=== PATIENT | male | born 1950 | race Caucasian/White ===

== ENCOUNTER 2018-01-24 12:26 | Day surgery (SDC) | payer MEDICARE, MEDICAID ==
[~2018-01-24] VITALS: Ht 182.9 cm; Wt 71.0 kg
[2018-01-24] MEDS ORDERED: fentaNYL/PF 50MCG/1 ML 2ML syringe ONE (12:40)
[2018-01-24] MEDS ORDERED: MIDAZolam 5mg/ml 2ml vial ONE (12:40)
[2018-01-24] MEDS ORDERED: ALTACE PO (12:53)
[2018-01-24] MEDS ORDERED: VENL150C2 PO (12:54)
[2018-01-24] MEDS ORDERED: HYDR25TA4 PO (12:54)
[2018-01-24] MEDS ORDERED: PANT-47 PO (12:55)
[2018-01-24] MEDS ORDERED: CLON-527 PO (12:57)
[2018-01-24] MEDS ORDERED: METH-603 PO (13:03)
[2018-01-24] MEDS ORDERED: FLUT1DIS4 INH (13:04)
[2018-01-24 13:05] VITALS: BP 123/73
[2018-01-24] MEDS ORDERED: TEST200V10 IM (13:06)
[2018-01-24] MEDS ORDERED: RAMIPRIL PO (13:08)
[2018-01-24] MEDS ORDERED: TOPROL PO (13:08)
[2018-01-24 14:07] VITALS: BP 114/70
[2018-01-24 14:17] VITALS: BP 111/72
[2018-01-24 14:27] VITALS: BP 100/62
[2018-01-24 14:37] VITALS: BP 110/66
== END 2018-01-24 14:45 | disposition home or self-care (01) ==
LOC: GI LAB 12:26
PROVIDERS: ATTEND Internal Medicine Gastroenterology
DX: K52.89 Other specified noninfective gastroenteritis and colitis (principal); K63.3 Ulcer of intestine; F41.8 Other specified anxiety disorders; I10 Essential (primary) hypertension; Z79.899 Other long term (current) drug therapy
CPT/HCPCS: 45380; 99153; G0500; J2250; J3010; J7030; A4620

== ENCOUNTER 2018-06-14 20:17 | Emergency (ER) | payer MEDICARE, MEDICAID ==
[~2018-06-14 20:17] MED LIST: ALTACE PO; CLON-527 PO; FLUT1DIS4 INH; HYDR25TA4 PO; METH-603 PO; PANT-47 PO; RAMIPRIL PO; TEST200V10 IM; TOPROL PO; VENL150C2 PO
== END 2018-06-14 21:20 | disposition left against medical advice (07) ==
LOC: ER 20:18
DX: R50.9 Fever, unspecified (principal); Z53.21 Procedure and treatment not carried out due to patient leaving prior to being seen by health care provider

== ENCOUNTER 2025-11-06 12:47 | Outpatient (CLI) | payer MEDICARE, MEDICAID ==
[~2025-11-06 12:47] MED LIST changes: -CLON-527 PO; +CLON1TAB2 PO; -TEST200V10 IM; +TEST200V33 IM; -VENL150C2 PO; +VENL150C5 PO
--- NOTE | 2025-11-06 13:07 | ELECTROCARDIOGRAPH REPORT ---
[facility] Test Date: 2025-11-06 Test Time: 13:05:05 Pat Name: ALFONZO BARLOW Department: [facility] Patient ID: [id number] Room: Gender: M Waste Removalist: NIKI : 1950 Requested By: KALPANA THOMAS Order Number: [id number] Reading MD: Dr. Be Krueger Measurements Intervals Holt Rate: 86 P: 52 WI: 181 QRS: 30 QRSD: 97 T: 44 QT: 430 QTc: 515 Interpretive Statements Sinus rhythm Abnormal R-wave progression, early transition Prolonged QT interval Electronically Signed On 11-06-2025 16:33:[address] Be Krueger Please click the below link to view image of tracing.
== END 2025-11-06 23:59 | disposition home or self-care (01) ==
LOC: RAD 12:47
PROVIDERS: ATTEND Physician Assistant
DX: R94.31 Abnormal electrocardiogram [ECG] [EKG] (principal); F11.20 Opioid dependence, uncomplicated
CPT/HCPCS: 93005